=== PATIENT | female | born 1980 | race Caucasian/White ===

== ENCOUNTER 2017-09-28 10:40 | Emergency (ER) | END 2017-09-28 14:11 | disposition home or self-care (01) ==

== ENCOUNTER 2018-06-03 12:02 | Emergency (ER) | payer SELFPAY ==
[~2018-06-03] VITALS: Ht 170.2 cm; Wt 89.7 kg
[~2018-06-03 12:02] MED LIST: HYDR-4011 PO; IBUP-1542 PO
[2018-06-03 12:11] VITALS: Ht 170.2 cm; Wt 89.7 kg
== END 2018-06-03 14:21 | disposition left against medical advice (07) ==
LOC: FTE 12:02
DX: Z53.21 Procedure and treatment not carried out due to patient leaving prior to being seen by health care provider (principal)